=== PATIENT | female | born 1970 | race Caucasian/White ===

== ENCOUNTER 2017-05-29 17:23 | Emergency (ER) | payer OTHER ==
[~2017-05-29] VITALS: Wt 69.0 kg
[~2017-05-29 17:23] MED LIST: AZIT250T94 PO
[2017-05-29] MEDS ORDERED: KETOROLAC 30 MG INJ IV STA (18:17)
[2017-05-29] MEDS ORDERED: SOD CHLORIDE 0.9% 1,000 ML IV ONE (18:30)
--- NOTE | 2017-05-29 18:52 | ERD ---
ER Documentation Chief Complaint Date/Time DATE: 05/29/17 TIME: 18:49 Chief Complaint HEADACHE WITH NAUSUEA SINCE YESTERDAY HPI This is a 46-year-old female presents to the ER with multiple complaints. The last few months patient has had a constant headache that usually occur in the afternoon. Headache is located on the top of her head and is burning in quality. Pain is nonradiating. Patient denies any vision loss or vision changes. She denies any head trauma. Patient denies any recent cough or cold symptoms, she denies any nasal discharge. Patient denies any dental pain. She denies any eye pain. Patient is also complaining of left arm numbness and tingling with associated left-sided chest pain. Chest pain is nonexertional. Chest pain is sharp in nature and happens intermittently whenever she gets a headache. Patient denies any shortness of breath. Per patient's her blood pressure has been elevated. Patient has not been to her PCP for these symptoms, her gave her his mother's blood pressure medication. Patient denies any other extremity numbness or weakness. He denies any neck pain. ROS 12 point review of systems was done, all negative except per HPI. Medications Home Meds Active Scripts Ibuprofen* (Motrin*) 600 Mg Tab, 600 MG PO Q6, #30 TAB Prov:DRU RANDLE 05/29/17 Azithromycin* (Zithromax*) 250 Mg Tablet, 250 MG PO .ZPACK DIRECTED, #6 TAB TAKE 500 MG (2 TABS) THE FIRST DAY THEN 250 MG (1 TAB) DAYS 2-5 Prov:LOUANN FAJARDO PA-C 11/04/15 Allergies Allergies: Coded Allergies: No Known Allergy (Unverified , 03/12/15) PMhx/Soc History of Surgery: No Anesthesia Reaction: No Hx Neurological Disorder: No Hx Respiratory Disorders: No Hx Cardiac Disorders: No Hx Psychiatric Problems: No Hx Alcohol Use: No Hx Substance Use: No Hx Tobacco Use: No Smoking Status: Never smoker Physical Exam Vitals Vital Signs Date Time Temp Pulse Resp B/P Pulse Ox O2 Delivery O2 Flow Rate FiO2 05/29/17 17:26 99.0 89 18 136/77 99 Physical Exam GENERAL: The patient is well developed and appropriate for usual state of health , in no apparent distress. HEENT: Atraumatic. Conjunctivae are pink. Pupils equal, round, and reactive to light. Extraocular muscles are grossly intact. Bilateral tympanic membranes are clear with no evidence of erythema, bulging or perforation. No sinus tenderness. NECK: C-spine is soft and supple. There is no cervical lymphadenopathy. CHEST: Clear to auscultation bilaterally. There are no rales, wheezes or rhonchi. HEART: Regular rate and rhythm. No murmurs, clicks, rubs or gallops. EXTREMITIES: Equal pulses bilaterally. There is no peripheral clubbing, cyanosis or edema. No focal swelling or erythema. Full range of motion. Grossly neurovascularly intact. NEURO: Alert and oriented. Cranial nerves II through XII are intact. Motor strength in all 4 extremities with 5/5 strength. Sensation grossly intact. Normal speech and gait. Negative Rhomberg. +2 DTRs. SKIN: There is no apparent rash or petechia. The skin is warm and dry. Result Diagram: 05/29/176 05/29/176 Results 24 hrs Laboratory Tests Test 05/29/17 18:36 White Blood Count 7.810^3/ul Red Blood Count 4.4910^6/ul Hemoglobin 13.6g/dl Hematocrit 40.7% Mean Corpuscular Volume 90.6fl Mean Corpuscular Hemoglobin 30.3pg Mean Corpuscular Hemoglobin Concent 33.4g/dl Red Cell Distribution Width 13.1% Platelet Count 47840^3/UL Mean Platelet Volume 11.2fl Neutrophils % 62.2% Lymphocytes % 28.5% Monocytes % 7.6% Eosinophils % 0.8% Basophils % 0.6% Nucleated Red Blood Cells % 0.0/100WBC Neutrophils # 4.910^3/ul Lymphocytes # 2.210^3/ul Monocytes # 0.610^3/ul Eosinophils # 0.110^3/ul Basophils # 0.110^3/ul Nucleated Red Blood Cells # 0.010^3/ul Prothrombin Time 11.3Sec Prothrombin Time Ratio 0.9 INR International Normalized Ratio 0.82 Activated Partial Thromboplast Time 23.9Sec Sodium Level 144mmol/L Potassium Level 3.7mmol/L Chloride Level 98mmol/L Carbon Dioxide Level 28mmol/L Anion Gap 22 Blood Urea Nitrogen 12mg/dl Creatinine 0.93mg/dl Glucose Level 93mg/dl Calcium Level 9.9mg/dl Troponin I < 0.012ng/ml Current Medications Medications (Trade) Dose Ordered Sig/Kellen Route PRN Reason Start Time Stop Time Status Last Admin Dose Admin Ketorolac Tromethamine 30 mg 30 mg ONCE STAT IV 05/29/17 18:17 05/29/17 18:19 DC Sodium Chloride (NS) 1,000 ml @ 1,000 mls/hr Q1H ONCE IV 05/29/17 18:30 05/29/17 19:29 DC 05/29/17 18:29 Procedures/MDM Differential Diagnosis includes but is not limited to; tension headache, migraine headache, cluster headache, sinus headache, nonspecific febrile headache, trigeminal neurologia, subdural hematoma, subarachnoid bleeding, meningitis, encephalitis. Patient is neurologically intact with no focal neurological deficits. This is likely a migraine headache. Patient is afebrile and well-appearing. She does not have a history of trauma. She does not have any meningeal signs. In regards to patient's chest pain I doubt this is of acute cardiac etiology patient's EKG was normal [address] elevation no T-wave inversion read by Dr. Rob. Patient's troponin was also negative. Patient will be sent home with ibuprofen. She is to follow-up with her primary care doctor within 1-2 days or return to ER sooner if symptoms worsen. My medical decision making shared with the patient she understands and agrees with plan. Departure Diagnosis: Primary Impression: Multiple complaints Condition: Stable DRU RANDLE May 29, 2017 18:51
--- NOTE | 2017-05-29 19:03 | RADRPT ---
PROCEDURE: XR Chest. CLINICAL INDICATION: Chest pain. TECHNIQUE: Single frontal view. COMPARISON: 03/12/2015. FINDINGS: The lungs are clear. The heart size is normal. There is no pleural effusion. There is no pneumothorax. IMPRESSION: 1. Normal chest radiograph. 2. No change from 03/12/2015. RPTAT: QQ .Wil Shin MD, MD Date Time Electronically viewed and signed by .Wil Shin MD, MD on 05/29/2017 19:03 .R/
[2017-05-29 19:04] LABS: ADD SCAN DIFF NO
[2017-05-29 19:08] LABS: BASOPHIL # 0.1 10^3/ul (0.0-0.1); BASOPHILS % 0.6 % (0.0-2.0); EOSINOPHILS # 0.1 10^3/ul (0.0-0.5); EOSINOPHILS % 0.8 % (0.0-7.0); HEMATOCRIT 40.7 % (37.0-47.0); HEMOGLOBIN 13.6 g/dl (12.0-16.0); LYMPHOCYTES # 2.2 10^3/ul (0.8-2.9); LYMPHOCYTES % 28.5 % (15.0-51.0); MEAN CORPUSCULAR HEMOGLOBIN 30.3 pg (29.0-33.0); MEAN CORPUSCULAR HGB CONC 33.4 g/dl (32.0-37.0); MEAN CORPUSCULAR VOLUME 90.6 fl (82.0-101.0); MEAN PLATELET VOLUME 11.2 fl (7.4-10.4); MONOCYTE # 0.6 10^3/ul (0.3-0.9); MONOCYTES % 7.6 % (0.0-11.0); NEUTROPHIL # 4.9 10^3/ul (1.6-7.5); NEUTROPHILS % 62.2 % (39.0-77.0); PLATELET COUNT 311 10^3/UL (140-415); RED BLOOD COUNT 4.49 10^6/ul (4.20-5.40); RED CELL DISTRIBUTION WIDTH 13.1 % (11.5-14.5); WHITE BLOOD COUNT 7.8 10^3/ul (4.8-10.8)
[2017-05-29 19:26] LABS: INR 0.82; PARTIAL THROMBOPLASTIN TIME 23.9 Sec (25.0-35.0); PROTIME 11.3 Sec (12.2-14.2); PT RATIO 0.9
[2017-05-29 19:32] LABS: ANION GAP 22 (8-16); BLOOD UREA NITROGEN 12 mg/dl (7-20); CALCIUM 9.9 mg/dl (8.4-10.2); CARBON DIOXIDE 28 mmol/L (21-31); CHLORIDE 98 mmol/L (97-110); CREATININE 0.93 mg/dl (0.44-1.00); GLUCOSE 93 mg/dl (70-220); POTASSIUM 3.7 mmol/L (3.5-5.1); SODIUM 144 mmol/L (135-144)
[2017-05-29 19:47] LABS: TROPONIN-I < 0.012 ng/ml (0.00-0.12)
--- NOTE | 2017-05-29 20:15 | RADRPT ---
PROCEDURE: CT Brain without contrast. CLINICAL INDICATION: Headache. TECHNIQUE: A CT of the brain without contrast was performed utilizing axial sections from the skul l base through the vertex. The patient was scanned without intravenous contrast enhancement. Sagitta l and coronal reformatted images were obtained using the data from the axial images. Total exam DLP is 630.20 mGy-cm. CTDIvol is 44.26 mGy. One or more of the following dose reduction techniques we re used: Automated exposure control, adjustment of the mA and/or kV according to patient size, use o f iterative reconstruction technique. COMPARISON: None available FINDINGS: There is normal ureña-white matter differentiation. The ventricles and cisterns are normal. There is no intracranial hemorrhage or space-occupying lesion. There is no skull fracture or lytic lesion. IMPRESSION: 1. Normal noncontrast CT scan of the brain. 2. No intracranial hemorrhage. RPTAT: QQ .Wil Shin MD, MD Date Time Electronically viewed and signed by .Wli Shin MD, on 05/29/2017 20:15 .R/
[2017-05-29] MEDS ORDERED: IBUP-1542 PO (20:19)
[2017-05-29 20:51] VITALS: BP 155/82; PULSE 60; RESP 18; TEMP 98
== END 2017-05-29 20:51 | disposition home or self-care (01) ==
LOC: FTE 17:23
DX: R51 Headache (principal); R40.2252 Coma scale, best verbal response, oriented, at arrival to emergency department; R11.0 Nausea; R20.0 Anesthesia of skin; R20.2 Paresthesia of skin; R07.9 Chest pain, unspecified; R40.2142 Coma scale, eyes open, spontaneous, at arrival to emergency department; R40.2362 Coma scale, best motor response, obeys commands, at arrival to emergency department
CPT/HCPCS: 36415; 70450; 71010; 80048; 84484; 85025; 85610; 85730; 93005; J7030; Z7502; J1885